=== PATIENT | male | born 1950 | race Caucasian/White ===

== ENCOUNTER 2016-05-30 16:55 | Emergency (ER) | payer OTHER ==
[2016-05-30 17:01] VITALS: BP 135/67; PULSE 88; RESP 18; TEMP 99; O2SAT 95
[2016-05-30] MEDS ORDERED: BENZONATATE 100 MG CAP PO ONE ×2 (20:19→20:23)
--- NOTE | 2016-05-30 20:33 | UCPHY ---
H & P Time Seen by Provider: 05/30/16 18:50 Patient Type: New HPI/ROS: HPI Cough, congestion. 65-year-old male by private vehicle. He is traveling from [place]. He spent some time in [place] with friends and relatives last week. He reports that some of them had an upper respiratory infection cough. He reports that 5-6 days ago he developed a cough, mild sore throat and nasal congestion. The cough has persisted and now is productive of a yellowish green sputum. He denies fever. He denies muscle aches and joint aches. No shortness of breath. No other complaints. ROS: Constitutional: No fever, no chills. No weakness. Eyes: No discharge. No changes in vision. ENT: As above. No nasal congestion or rhinorrhea. Respiratory: As above. No shortness of breath. Cardiac: No chest pain, no palpitations. Gastrointestinal: No abdominal pain, no vomiting, no diarrhea. Genitourinary: No hematuria. No dysuria or increased frequency with urination. Musculoskeletal: No back pain. No neck pain. No myalgias or arthralgias. Skin: No rashes. Neurological: No headache. No focal weakness or altered sensation. Past medical history: Bilateral hip replacements. Social history: Nonsmoker. Here from [place]. Physical Exam: General Appearance: Alert, no distress. This patient is responding to questions appropriately and in full sentences. This patient appears well- hydrated and well-nourished. Eyes: Pupils equal and round no pallor or injection. No lid edema, erythema or injection. ENT, Mouth: Mucous membranes are moist. The pharyngeal tissues are unremarkable. No edema or swelling. No asymmetry suggestive of abscess. No erythema or exudates. Respiratory: There are no retractions, lungs are clear to auscultation with good air movement bilaterally. Cardiovascular: Regular rate and rhythm. No murmur. Neurological: Motor sensory function is grossly intact. Cranial nerves are normal. Gait is normal. Skin: Warm and dry, no rashes. Musculoskeletal: Neck is supple and nontender. No cervical lymphadenopathy. Extremities are symmetrical. All joints range without pain or impingement. Psychiatric: No agitation. No depression. Database: EKG: Imaging: Chest x-ray PA and lateral; the cardiac mediastinal silhouette is unremarkable. Possible left lower lobe pneumonia. Bronchitis. No other acute cardiopulmonary disease process noted. Interpreted by me. Procedures: Emergency department course: Vital signs reviewed on this patient. Patient given 200 mg of Tessalon Perle. Explained I do not recommend antibiotics at this time. Supportive care with ibuprofen, [id number] antitussive medications and Tessalon Perle discussed with him. He feels comfortable going home and with this management plan. Follow-up and return to emergency department precautions reviewed. All of his questions were answered. He was discharged in good condition. Over read on chest x-ray by staff radiologist Dr. Colt Lee indicates possible left lower lobe retro cardiac pneumonia. I spoke with the charge nurse , Lucia, at the [facility] emergency department at 10:35 AM. She will notify the patient of the finding and diagnosis. Previous diagnosis was bronchitis. A prescription for Levaquin, 750 mg PO daily for seven days will be called in for this patient. Differential Diagnosis: The differential diagnosis on this patient includes but is not limited to bronchitis, viral upper respiratory infection. Pneumonia, serious bacterial infection unlikely. This represents a partial list of diagnoses considered. These considerations are based on history, physical exam, past history, reassessment and diagnostic testing. Constitutional: Initial Vital Signs Temperature (C) 37.2 C 05/30/16 16:57 Heart Rate 88 05/30/16 16:57 Respiratory Rate 18 05/30/16 16:57 Blood Pressure 135/67 H 05/30/16 16:57 O2 Sat (%) 95 05/30/16 16:57 O2 Delivery Mode Room Air Allergies/Adverse Reactions: No Known Allergies Allergy (Unverified 05/30/16 16:57) Home Medications: Medication Instructions Recorded Benzonatate [Tessalon Pearles] 100 mg PO TID #12 cap 05/30/16 Medical Decision Making - Data Points Medications Given: Discontinued Medications Benzonatate (Tessalon Pearles) 200 mg PO EDNOW ONE Stop: 05/30/16 20:24 Last Admin: 05/30/16 20:31 Dose: 200 mg Departure - Departure Disposition: Home, Routine, Self-Care Clinical Impression: Bronchitis, Upper respiratory infection, Possible pneumonia Condition: Good Instructions: Acute Bronchitis (ED) Additional Instructions: Read and follow provided instructions. Follow-up with your primary care physician in 2-3 days for re-evaluation. Take medication as prescribed. Ibuprofen dosin mg every 6 hours with meals for the next 3 days only. As needed for sore throat. Return to the emergency department for fever, worsening cough, difficulty breathing or other serious concerns. Referrals: NONE *PRIMARY CARE P,. [Primary Care Provider] - As per Instructions Prescriptions: Benzonatate [Tessalon Pearles] 100 mg PO TID #12 cap - PQRS PQRS Measurement: 134: Depression screening and followup, PRIME MD-PHQ2 (12 years and older) Over the last 2 weeks, how often have you been bothered by any of the following problems? 1. Feeling down, depressed, or hopeless? 2. Little interest or pleasure in doing things? Answered no to both questions. 130: Documentation of medications. Reviewed all patient medications, doses, route and frequency. 226: Do you smoke? No. 47: 65 and older: Advanced care planning. Patient designates surrogate decision maker as family. 51: 18 years old and older with diagnosis of COPD, spirometry performance. NA 52: 18 years old and older with COPD and symptoms of COPD or FEV1<60% predicted prescribed a B Agonist. NA
== END 2016-05-30 20:40 | disposition home or self-care (01) ==
LOC: CED 16:55
DX: J20.9 Acute bronchitis, unspecified (principal)
CPT/HCPCS: 71020-PO; 99203-PO; G0463-PO